=== PATIENT | female | born 1975 | race African-American/Black ===

== ENCOUNTER 2016-11-30 22:29 | Emergency (ER) | payer OTHER ==
[~2016-11-30 22:29] MED LIST: AMOXIL500 MG PO; CIPRO PO; FLEXERIL10 M1 PO; HYDROCODON-ACE1 EAC5 PO; IBUPROFEN800 MG PO; MAGIC MOUTHWASH PO; MOBIC PO; MOTRIN600 M1 PO; PHENERGAN25 MG PO; PREDNISONE PO; PREDNISONE10 MG PO; ULTRAM PO; VICODIN PO
== END 2016-12-01 00:40 | disposition home or self-care (01) ==
LOC: CED 22:29
DX: R51 Headache (principal)
CPT/HCPCS: 96374; 96375; 99284; J0780; J1100; J1200; J1885